=== PATIENT | female | born 1990 | race African-American/Black ===

== ENCOUNTER 2020-04-05 10:55 | Emergency (ER) | payer OTHER ==
[2020-04-05 11:09] VITALS: BMI 41.1
[2020-04-05] MEDS ORDERED: KETOROLAC TROMETHAMINE 15 MG/ML VIAL IVPUSH ONE (12:19)
[2020-04-05] MEDS ORDERED: ONDANSETRON 4 MG/2 ML VIAL IVPUSH ONE ×2 (12:29→13:48)
[2020-04-05] MEDS ORDERED: KETOROLAC TROMETHAMINE 15 MG/ML VIAL ONE (12:51)
[2020-04-05 13:14] LABS: EPI CELLS 12 /uL (0-25.1); HYALINE CASTS 2 /uL (0-3.1); PH,URINE 6.5 (5.0-8.0); URINE APPEARANCE TURBID; URINE BACTERIA 159 /uL (0-1359); URINE BILIRUBIN NEGATIVE (NEGATIVE); URINE COLOR YELLOW; URINE GLUCOSE (UA) NEGATIVE (NEGATIVE); URINE KETONE TRACE (NEGATIVE); URINE LEUK ESTERASE NEGATIVE (NEGATIVE); URINE NITRITE NEGATIVE (NEGATIVE); URINE PROTEIN TRACE (NEGATIVE); URINE RBC 140 /uL (0-23.9); URINE WBC 9 /uL (0-25.8)
[2020-04-05] MEDS ORDERED: METOCLOPRAMIDE HCL INJECTION 10 MG/2 ML VIAL IVPUSH ONE (15:08)
[2020-04-05] MEDS ORDERED: METOCLOPRAMIDE HCL INJECTION 10 MG/2 ML VIAL ONE (15:12)
[2020-04-05] MEDS ORDERED: SODIUM CHLORIDE 0.9% 500 ML INFUS.BAG IV ONE (17:22)
[2020-04-05] MEDS ORDERED: IBUPROFEN 600 MG TABLET (FP) PO ONE ×2 (17:58→18:11)
[2020-04-05 18:11] LABS: BASO % 0.3 % (0-2.0); HEMATOCRIT 34.9 % (32.4-45.2); HEMOGLOBIN 11.1 GM/dL (10.7-15.3); MCHC 31.9 g/dl (32.0-36.0); MEAN CELL VOLUME 84.6 fl (80-96); MEAN PLT VOLUME 8.9 fl (7.5-11.1); MONO % 4.1 % (3.8-10.2); NEUT % 88.6 % (42.8-82.8); PLATELET COUNT 443 K/MM3 (134-434); RBC 4.13 M/mm3 (3.60-5.2); RDW 14.4 % (11.6-15.6); WHITE BLOOD COUNT 15.4 K/mm3 (4.0-10.0)
[2020-04-05 18:21] LABS: POTASSIUM 4.2 mmol/L (3.5-5.1)
[2020-04-05 18:22] VITALS: BP 117/62; PULSE 61; TEMP 98.2
[2020-04-05 18:23] LABS: CALCIUM 8.9 mg/dL (8.5-10.1)
[2020-04-05 18:24] LABS: ALBUMIN 3.8 g/dl (3.4-5.0); BLOOD UREA NITROGEN 14.6 mg/dL (7-18)
[2020-04-05 18:27] LABS: CREATININE 0.6 mg/dL (0.55-1.3)
[2020-04-05 18:29] LABS: BILIRUBIN,TOTAL 0.2 mg/dL (0.2-1); TOT PROT 7.8 g/dl (6.4-8.2)
== END 2020-04-05 19:50 | disposition home or self-care (01) ==
LOC: JER 10:55
PROC: 3E0333Z Introduction of Anti-inflammatory into Peripheral Vein, Percutaneous Approach (ICD-10-PCS; principal; 2020-04-05)
PROC: 3E033GC Introduction of Other Therapeutic Substance into Peripheral Vein, Percutaneous Approach (ICD-10-PCS; 2020-04-05)
DX: N94.6 Dysmenorrhea, unspecified (principal)
CPT/HCPCS: 36415; 80053; 81003; 84703; 85025; 87086; 99285-25

== ENCOUNTER 2022-03-03 18:27 | Emergency (ER) | payer OTHER ==
[2022-03-03 18:42] VITALS: BP 118/81; RESP 20; TEMP 98.9; BMI 39.2
[2022-03-03 21:32] VITALS: PULSE 91
== END 2022-03-03 21:45 | disposition home or self-care (01) ==
LOC: JERFT 18:27
DX: M25.562 Pain in left knee (principal)
CPT/HCPCS: 73562-TC-LT-FY; 93971-TC; 99284-25

== ENCOUNTER 2024-09-01 08:18 | Observation (INO) | payer OTHER ==
[2024-09-01 08:42] VITALS: BMI 36.6
[2024-09-01] MEDS ORDERED: ACETAMINOPHEN INJECTION 100 ML ONE ×2 (09:15→15:51)
[2024-09-01] MEDS ORDERED: ONDANSETRON 4 MG/2 ML VIAL ONE ×2 (09:15→15:50)
[2024-09-01] MEDS ORDERED: FAMOTIDINE 20 MG/50 ML IVPB 20 MG/50 ML MG IVPB ONE (09:16)
[2024-09-01] MEDS: ACETAMINOPHEN 1000 MG/100 ML BAG IVPB ONE ×2 (09:56→16:03)
[2024-09-01] MEDS: SODIUM CHLORIDE 1,000 ML IV STA (09:56)
[2024-09-01] MEDS: ONDANSETRON 4 MG/2 ML VIAL IVPUSH ONE ×2 (09:57→16:03)
[2024-09-01] MEDS: FAMOTIDINE 20 MG/50 ML IVPB 20 MG/50 ML MG IVPB ONE (09:57)
[2024-09-01 10:05] LABS: ABSOLUTE IMMATURE GRANULOCYTES 0.06 x10^3/uL (0.0-0.031); BASOPHILS # 0.03 x10^3/uL (0.01-0.08); HEMATOCRIT 38.4 % (34.1-44.9); MCHC 31.3 g/dl (32.2-35.5); MEAN CELL VOLUME 88.5 fl (79.4-94.8); MEAN PLT VOLUME 10.2 fl (9.4-12.3); MONOCYTE # 0.65 x10^3/uL (0.24-0.86); MONOCYTE % 4.8 % (4.7-12.5); PLATELET COUNT 411 x10^3/uL (182-369); RDW 13.1 % (12.1-16.8)
[2024-09-01] MEDS ORDERED: METOCLOPRAMIDE HCL INJECTION 10 MG/2 ML VIAL ONE (11:07)
[2024-09-01] MEDS: METOCLOPRAMIDE HCL INJECTION 10 MG/2 ML VIAL IVPUSH ONE (11:24)
[2024-09-01 12:22] LABS: POTASSIUM 4.1 mmol/L (3.5-5.1)
[2024-09-01 12:24] LABS: CALCIUM 9.3 mg/dL (8.5-10.1)
[2024-09-01 12:25] LABS: ALBUMIN 3.8 g/dl (3.4-5.0); BLOOD UREA NITROGEN 12.4 mg/dL (7-18)
[2024-09-01 12:27] LABS: CREATININE 0.7 mg/dL (0.55-1.3)
[2024-09-01 12:29] LABS: BILIRUBIN,TOTAL 0.3 mg/dL (0.2-1); TOT PROT 7.8 g/dl (6.4-8.2)
[2024-09-01] MEDS ORDERED: HALOPERIDOL LACTATE 5 MG/ML ONE (12:54)
[2024-09-01] MEDS ORDERED: MAG HYDROX/AL HYDROX/SIMETH 30 ML UNIT-DOSE CUP ONE (13:02)
[2024-09-01] MEDS: MAG HYDROX/AL HYDROX/SIMETH 30 ML UNIT-DOSE CUP PO ONE (13:14)
[2024-09-01] MEDS: HALOPERIDOL LACTATE 5 MG/ML IM ONE (13:14)
[2024-09-01] MEDS: SODIUM CHLORIDE 1,000 ML IV SCH (15:47)
[2024-09-01] MEDS ORDERED: DOCUSATE SODIUM 100 MG CAPSULE (FP) PO PRN (20:24)
[2024-09-01] MEDS ORDERED: ACETAMINOPHEN 1000 MG/100 ML BAG IVPB PRN (22:00)
[2024-09-01] MEDS: ONDANSETRON 4 MG/2 ML VIAL IVPUSH PRN (23:12)
[2024-09-02 08:55] LABS: HEMATOCRIT 32.9 % (34.1-44.9); HEMOGLOBIN 10.2 g/dL (11.2-15.7); MEAN CELL VOLUME 87.5 fl (79.4-94.8); MEAN PLT VOLUME 10.4 fl (9.4-12.3); PLATELET COUNT 358 x10^3/uL (182-369); RDW 13.4 % (12.1-16.8)
[2024-09-02 09:06] LABS: POTASSIUM 3.6 mmol/L (3.5-5.1)
[2024-09-02] MEDS: PANTOPRAZOLE 40 MG TABLET PO SCH (09:09)
[2024-09-02 09:14] LABS: BLOOD UREA NITROGEN 5.6 mg/dL (7-18); MAGNESIUM 1.8 mg/dL (1.8-2.4); PHOSPHOROUS 2.4 mg/dL (2.5-4.9)
[2024-09-02 09:16] LABS: BILIRUBIN,TOTAL 0.6 mg/dL (0.2-1); TOT PROT 6.1 g/dl (6.4-8.2)
[2024-09-02 09:18] LABS: CREATININE 0.5 mg/dL (0.55-1.3)
[2024-09-02 13:22] LABS: EPI CELLS 12 /uL (0-25.1); HYALINE CASTS 1 /uL (0-3.1); URINE APPEARANCE CLEAR; URINE BACTERIA 133 /uL (0-1359); URINE BILIRUBIN NEGATIVE (NEGATIVE); URINE COLOR YELLOW; URINE GLUCOSE (UA) NEGATIVE (NEGATIVE); URINE KETONE 3+ (NEGATIVE); URINE LEUK ESTERASE NEGATIVE (NEGATIVE); URINE NITRITE NEGATIVE (NEGATIVE); URINE PROTEIN NEGATIVE (NEGATIVE); URINE RBC 109 /uL (0-23.9); URINE WBC 27 /uL (0-25.8)
[2024-09-02] MEDS ORDERED: ACETAMINOPHEN 325 MG TABLET (FP) PO PRN (22:00)
[2024-09-03 05:38] VITALS: RESP 18
[2024-09-03 09:25] LABS: ABSOLUTE IMMATURE GRANULOCYTES 0.03 x10^3/uL (0.0-0.031); BASOPHILS # 0.04 x10^3/uL (0.01-0.08); EOSINOPHIL % 0.4 % (0.7-5.8); EOSINOPHILS # 0.04 x10^3/uL (0.04-0.36); HEMATOCRIT 31.2 % (34.1-44.9); HEMOGLOBIN 9.9 g/dL (11.2-15.7); MCHC 31.7 g/dl (32.2-35.5); MEAN CELL VOLUME 86.9 fl (79.4-94.8); MEAN PLT VOLUME 10.5 fl (9.4-12.3); MONOCYTE % 10.7 % (4.7-12.5); PLATELET COUNT 329 x10^3/uL (182-369); RDW 13.2 % (12.1-16.8)
[2024-09-03 09:43] LABS: POTASSIUM 3.7 mmol/L (3.5-5.1)
[2024-09-03 09:47] LABS: CALCIUM 8.3 mg/dL (8.5-10.1)
[2024-09-03 09:48] LABS: ALBUMIN 2.8 g/dl (3.4-5.0); BLOOD UREA NITROGEN 6.8 mg/dL (7-18)
[2024-09-03 09:51] LABS: CREATININE 0.5 mg/dL (0.55-1.3)
[2024-09-03 09:52] LABS: BILIRUBIN,TOTAL 0.5 mg/dL (0.2-1); TOT PROT 5.6 g/dl (6.4-8.2)
[2024-09-03] MEDS: TRIMETHOBENZAMIDE HCL 200MG/2ML INJ IM PRN (21:46)
[2024-09-04] MEDS: SIMETHICONE 80 MG TAB.CHEW (FP) PO ONE (00:28)
[2024-09-04 02:37] VITALS: TEMP 97.9
[2024-09-04 06:02] VITALS: BP 102/64; PULSE 57
== END 2024-09-04 09:34 | disposition home or self-care (01) ==
LOC: JER 08:18 → JERBED 17:12 → J8W 19:51
PROVIDERS: ADMIT Internal Medicine; ATTEND Family Medicine
PROC: 3E033NZ Introduction of Analgesics, Hypnotics, Sedatives into Peripheral Vein, Percutaneous Approach (ICD-10-PCS; principal; 2024-09-01)
PROC: 3E023NZ Introduction of Analgesics, Hypnotics, Sedatives into Muscle, Percutaneous Approach (ICD-10-PCS; 2024-09-01)
PROC: 3E023GC Introduction of Other Therapeutic Substance into Muscle, Percutaneous Approach (ICD-10-PCS; 2024-09-01)
DX: D25.9 Leiomyoma of uterus, unspecified (principal); N85.9 Noninflammatory disorder of uterus, unspecified; R19.00 Intra-abdominal and pelvic swelling, mass and lump, unspecified site; K76.89 Other specified diseases of liver; R11.2 Nausea with vomiting, unspecified; D72.829 Elevated white blood cell count, unspecified; R10.30 Lower abdominal pain, unspecified
CPT/HCPCS: 0241U-QW; 36415; 74177-TC; 76856-TC; 80053; 81003; 82378; 83605; 83690; 83735; 84100; 84484; 84703; 85025; 86304; 93005; 93010; 96361; 96365; 96372; 96375; 96376; 99285-25; G0378; J0131

== ENCOUNTER 2024-10-18 05:38 | Inpatient (IN) | payer OTHER ==
[2024-10-12 11:22] VITALS: BMI 39.2
[2024-10-18] MEDS ORDERED: HEPARIN NA (PORCINE) 5,000 UNITS/ML 1ML VIAL ONE (14:01)
[2024-10-18] MEDS ORDERED: morphine SULFATE (PF) 1 MG/2 ML SYRINGE ONE (14:26)
[2024-10-18] MEDS ORDERED: MIDAZOLAM HCL 2 MG/2 ML SINGLE DOSE VIAL ONE (14:45)
[2024-10-18] MEDS ORDERED: PROPOFOL 20 ML ONE ×2 (14:46→16:06)
[2024-10-18] MEDS ORDERED: SUCCINYLCHOLINE CHLORIDE 200 MG/10 ML SYRINGE ONE (14:46)
[2024-10-18] MEDS ORDERED: LIDOCAINE HCL 2% 100 MG/5 ML DISP.SYRIN ONE (14:47)
[2024-10-18] MEDS ORDERED: ceFAZolin SODIUM 1 GM VIAL ONE (14:51)
[2024-10-18] MEDS: ceFAZolin SODIUM 1 GM VIAL IVPB ONE ×2 (14:52)
[2024-10-18] MEDS ORDERED: DEXAMETHASONE SOD PHOSPHATE 4 MG/1 ML VIAL ONE (14:53)
[2024-10-18] MEDS ORDERED: TRANEXAMIC ACID 1000 MG/10 ML VIAL ONE (15:00)
[2024-10-18] MEDS ORDERED: SEVOFLURANE 250 ML BTL ONE (15:03)
[2024-10-18] MEDS ORDERED: HYDROmorphone HCl 2 MG/ML VIAL ONE (15:06)
[2024-10-18] MEDS ORDERED: ONDANSETRON 4 MG/2 ML VIAL ONE ×2 (15:43→17:21)
[2024-10-18] MEDS ORDERED: oxyCODONE HCL 5 MG TABLET PO PRN (16:01)
[2024-10-18] MEDS ORDERED: ONDANSETRON 4 MG/2 ML VIAL IVPUSH PRN ×2 (16:01→16:57)
[2024-10-18] MEDS ORDERED: DOCUSATE SODIUM 100 MG CAPSULE (FP) PO PRN (16:01)
[2024-10-18] MEDS ORDERED: BISACODYL 5 MG TABLET.DR (FP) PO PRN (16:01)
[2024-10-18] MEDS ORDERED: ROCURONIUM BROMIDE 50 MG/5 ML SYRINGE ONE (16:04)
[2024-10-18] MEDS ORDERED: SUGAMMADEX SODIUM 200 MG/2 ML VIAL ONE (16:06)
[2024-10-18] MEDS ORDERED: NALOXONE HCL 0.4 MG/ML VIAL IVPUSH PRN (16:59)
[2024-10-18] MEDS: ONDANSETRON 4 MG/2 ML VIAL IVPUSH PRN (17:29)
[2024-10-18] MEDS ORDERED: PROMETHAZINE HCL 25 MG/1 ML VIAL ONE (18:04)
[2024-10-18] MEDS: PROMETHAZINE HCL 25 MG/1 ML VIAL IVPB PRN (18:07)
[2024-10-18] MEDS: LACTATED RINGERS SOLUTION 1,000 ML IV SCH (18:57)
[2024-10-18] MEDS: CEFAZOLIN 2 GM in DEXTROSE 5%-WATER - 100 ML IVPB ONE (19:49)
[2024-10-18] MEDS: TRANEXAMIC ACID 1000 MG/10 ML VIAL IVPUSH ONE (19:50)
[2024-10-18] MEDS: morphine SULFATE/PF 1 MG/2 ML (2cc Syringe - QUVA) IT ONE (19:50)
[2024-10-18] MEDS: CEFAZOLIN 2 GM/D5W 2 GM/50 ML ML IVPB SCH (23:05)
[2024-10-18] MEDS: ACETAMINOPHEN 1000 MG/100 ML BAG IVPB SCH (23:05)
[2024-10-19] MEDS: IBUPROFEN 800 MG/8 ML IJ IVPB SCH (00:09)
[2024-10-19 07:17] LABS: HEMATOCRIT 33.8 % (34.1-44.9); HEMOGLOBIN 10.8 g/dL (11.2-15.7); MEAN CELL VOLUME 86.7 fl (79.4-94.8); MEAN PLT VOLUME 9.6 fl (9.4-12.3); PLATELET COUNT 402 x10^3/uL (182-369); RDW 13.1 % (12.1-16.8)
[2024-10-19] MEDS: ENOXAPARIN NA (PORCINE) 40 MG/0.4 ML DISP.SYRIN SQ SCH (09:00)
[2024-10-19] MEDS: IBUPROFEN 600 MG TABLET (FP) PO PRN (13:42)
[2024-10-19] MEDS: SIMETHICONE 80 MG TAB.CHEW (FP) PO PRN (19:19)
[2024-10-19] MEDS: oxyCODONE HCL 5 MG TABLET PO PRN (19:19)
[2024-10-19] MEDS: ACETAMINOPHEN 500 MG TABLET (FP) PO PRN (23:12)
[2024-10-19 23:38] VITALS: RESP 18
[2024-10-20 07:48] LABS: HEMATOCRIT 30.1 % (34.1-44.9); HEMOGLOBIN 9.7 g/dL (11.2-15.7); MCHC 32.2 g/dl (32.2-35.5); MEAN CELL VOLUME 86.2 fl (79.4-94.8); PLATELET COUNT 345 x10^3/uL (182-369); RDW 13.2 % (12.1-16.8)
[2024-10-20 09:15] VITALS: BP 110/67; PULSE 57; TEMP 98.2
== END 2024-10-20 09:45 | disposition home or self-care (01) | DRG 519 ==
LOC: J2C 05:38 → J3W 19:47
PROVIDERS: ADMIT Specialist; ATTEND Specialist
PROC: 8E0W0CZ Robotic Assisted Procedure of Trunk Region, Open Approach (ICD-10-PCS; 2024-10-18)
PROC: 0UB90ZZ Excision of Uterus, Open Approach (ICD-10-PCS; principal; 2024-10-18 13:00)
DX: D25.9 Leiomyoma of uterus, unspecified (principal); R10.2 Pelvic and perineal pain
CPT/HCPCS: 36415; 80053; 81025; 85027; 85610; 85730; 86850; 86900; 86901; 86922; 88305-TC; 94760